=== PATIENT | female | born 1980 | race African-American/Black ===

== ENCOUNTER 2023-05-02 00:10 | Inpatient (IN) | payer OTHER ==
[2023-05-02] MEDS: ELECTROLYTE-148 SOLN 1,000 ML IV SCH (01:00)
[2023-05-02 01:20] LABS: BASO % 0.3 % (0-2.0); EOS % 0.1 % (0-4.5); HEMOGLOBIN 12.7 GM/dL (10.7-15.3); LYMPH % 11.8 % (8-40); MCHC 32.7 g/dl (32.0-36.0); MEAN CELL VOLUME 88.9 fl (80-96); MEAN PLT VOLUME 8.2 fl (7.5-11.1); MONO % 5.8 % (3.8-10.2); PLATELET COUNT 256 10^3/uL (134-434); RBC 4.39 M/mm3 (3.60-5.2); RDW 14.3 % (11.6-15.6); WHITE BLOOD COUNT 13.9 K/mm3 (4.0-10.0)
[2023-05-02 01:26] LABS: INR 0.96 (0.83-1.09); PROTHROMBIN TIME (PATIENT) 11.1 SEC (9.7-13.0)
[2023-05-02 01:28] LABS: ACTIVATED PTT 23.6 SECONDS (25.2-36.5)
[2023-05-02 01:32] LABS: POTASSIUM 4.3 mmol/L (3.5-5.1)
[2023-05-02 01:33] LABS: CALCIUM 8.9 mg/dL (8.5-10.1)
[2023-05-02 01:34] LABS: BLOOD UREA NITROGEN 9.3 mg/dL (7-18)
[2023-05-02 01:37] LABS: CREATININE 0.7 mg/dL (0.55-1.3)
[2023-05-02 01:43] VITALS: BMI 35.4
[2023-05-02] MEDS ORDERED: OXYTOCIN 20 UNITS in 0.9% NS 20 UNIT/1,000 ML INFUS.BAG IV ONE (02:56)
[2023-05-02] MEDS: OXYTOCIN 20 UNITS in 0.9% NS 20 UNIT/1,000 ML INFUS.BAG IV SCH (03:15)
[2023-05-02] MEDS ORDERED: WITCH HAZEL 50% (TUCKS) 40 PAD/JAR PAD TP PRN (03:49)
[2023-05-02] MEDS ORDERED: BENZOCAINE 28 GM HEMORRHOIDAL OINTMENT TP PRN (03:49)
[2023-05-02] MEDS ORDERED: BISACODYL 10 MG SUPP.RECT RC PRN (03:49)
[2023-05-02] MEDS ORDERED: METHYLERGONOVINE MALEATE 0.2 MG/1 ML AMP IM PRN (03:49)
[2023-05-02 03:53] LABS: CORD BASE EXCESS -2.4 mmol/L (0-2); CORD HCO3 24.4 mmHg (20-29); CORD PCO2 49.2 mmHg (30-78); CORD pH 7.313 (7.14-7.44)
[2023-05-02 04:08] LABS: CORD BASE EXCESS -1.1 mmol/L (0-2); CORD pH 7.229 (7.14-7.44)
[2023-05-02] MEDS: IBUPROFEN 600 MG TABLET (FP) PO PRN (06:22)
[2023-05-02] MEDS: BENZOCAINE 20% 57 GM BOTTLE TP PRN (11:17)
[2023-05-02 20:58] LABS: HIV INTERPRETATION NEGATIVE (NEGATIVE)
[2023-05-02] MEDS: CITRIC ACID/SODIUM CITRATE 30 ML UNIT-DOSE CUP PO ONE (23:17)
[2023-05-03 08:33] LABS: BASO % 0.2 % (0-2.0); EOS % 2.9 % (0-4.5); HEMATOCRIT 32.3 % (32.4-45.2); HEMOGLOBIN 10.5 GM/dL (10.7-15.3); LYMPH % 32.1 % (8-40); MCH 29.1 pg (25.7-33.7); MCHC 32.6 g/dl (32.0-36.0); MEAN PLT VOLUME 7.9 fl (7.5-11.1); MONO % 8.6 % (3.8-10.2); NEUT % 56.2 % (42.8-82.8); PLATELET COUNT 235 10^3/uL (134-434); RBC 3.62 M/mm3 (3.60-5.2); RDW 14.4 % (11.6-15.6); WHITE BLOOD COUNT 14.7 K/mm3 (4.0-10.0)
[2023-05-03 14:17] LABS: POC NITRAZINE POS
[2023-05-03] MEDS: SENNOSIDES/DOCUSATE COMBO (SENNA PLUS) TABLET (UD) PO PRN (21:34)
[2023-05-03 22:50] VITALS: RESP 18
[2023-05-04] MEDS: ACETAMINOPHEN 325 MG TABLET (FP) PO PRN (08:56)
[2023-05-04 11:22] VITALS: TEMP 98.2
[2023-05-04 13:22] VITALS: BP 99/66; PULSE 85
== END 2023-05-04 18:05 | disposition home or self-care (01) | DRG 807 ==
LOC: JDEL 00:10 → JLDR 00:35 → J3W 06:19
PROVIDERS: ADMIT Obstetrics & Gynecology; ATTEND Obstetrics & Gynecology
PROC: 10D07Z6 Extraction of Products of Conception, Vacuum, Via Natural or Artificial Opening (ICD-10-PCS; principal; 2023-05-02)
PROC: 0KQM0ZZ Repair Perineum Muscle, Open Approach (ICD-10-PCS; 2023-05-02)
PROC: 0W8NXZZ Division of Female Perineum, External Approach (ICD-10-PCS; 2023-05-02)
DX: O34.219 Maternal care for unspecified type scar from previous cesarean delivery (principal); Z37.0 Single live birth; O42.02 Full-term premature rupture of membranes, onset of labor within 24 hours of rupture; O69.81X0 Labor and delivery complicated by cord around neck, without compression, not applicable or unspecified; O70.1 Second degree perineal laceration during delivery; Z3A.40 40 weeks gestation of pregnancy
CPT/HCPCS: 36415; 36600; 80048; 82803; 83986-QW; 85025; 85461; 85610; 85730; 86780; 86803; 86850; 86900; 86901; 87340; 87389; 88307-TC; 96372; J2790